=== PATIENT | female | born 2000 | race African-American/Black ===

== ENCOUNTER 2025-03-18 08:58 | Inpatient (IN) | payer OTHER ==
[2025-03-18] MEDS ORDERED: Lidocaine 1% (PF) 30 ML VIAL SC PRN (20:27)
[2025-03-18] MEDS ORDERED: Tranexamic Acid 1,000 MG/10 ML VIAL IVP PRN (20:27)
[2025-03-18] MEDS ORDERED: hydrALAZINE 20 MG/ML VIAL SLOW IVP PRN (20:27)
[2025-03-18] MEDS ORDERED: Acetaminophen 500 MG TAB PO PRN (20:27)
[2025-03-18] MEDS ORDERED: Methylergonovine 0.2 MG/ML VIAL IM PRN (20:27)
[2025-03-18] MEDS ORDERED: Misoprostol 200 MCG TAB PR PRN (20:27)
[2025-03-18] MEDS ORDERED: Promethazine HCl 25 MG/ML VIAL IM PRN (20:27)
[2025-03-18] MEDS ORDERED: Ibuprofen 800 MG TAB PO PRN (20:27)
[2025-03-18] MEDS ORDERED: Oxytocin 30 units/NS 500 ML 500 ML IV SCH ×2 (20:30)
[2025-03-18] MEDS: Lactated Ringer's 1,000 ML IV SCH (21:16)
[2025-03-18 21:19] VITALS: BMI 43.4
[2025-03-18] MEDS: Misoprostol 100 MCG TAB VAG SCH (21:50)
[2025-03-18 22:18] LABS: Hep B Surf Ag - L&D Non-Reactive S/CO (NonReactive)
[2025-03-18 22:21] LABS: Syphilis Antibody Nonreactive (Nonreactive); Syphilis Antibody Index 0.05 S/CO (<1.00 Non-Reactive)
[2025-03-18 22:27] LABS: Hematocrit 32.5 % (34.9-44.5); Mean Corpuscular HGB CONC 33.8 g/dL (32.0-36.0); Mean Corpuscular Hemoglobin 32.6 pg (27.0-33.0); Mean Corpuscular Volume 96.4 fL (81.6-98.3); Mean Platelet Volume 11.1 fL (7.4-10.4); Platelet Count 304 10x3/uL (150-450); RBC Distribution Width 12.5 % (11.5-14.5); Red Blood Cell (RBC) Count 3.37 10x6/uL (3.90-5.03); White Blood Cell (WBC) Count 8.01 10x3/uL (3.5-10.5)
[2025-03-19] MEDS: Ondansetron PF 4 MG/2 ML Vial IVP PRN (11:31)
[2025-03-19 12:06] LABS: #Basophils 0.04 10x3/uL (0.0-0.2); #Eosinophils 0.11 10x3/uL (0.0-0.5); #Monocytes 0.88 10x3/uL (0.0-1.1); #Neutrophils 5.99 10x3/uL (1.5-8.4); %Basophils 0.4 % (0.0-2.0); %Lymphocytes 33.5 % (18.0-47.0); %Monocytes 8.3 % (0.0-10.0); %Neutrophils 56.2 % (40.0-75.0); Hematocrit 36.5 % (34.9-44.5); Hemoglobin 12.2 g/dL (12.0-15.5); Mean Corpuscular HGB CONC 33.4 g/dL (32.0-36.0); Mean Corpuscular Hemoglobin 32.1 pg (27.0-33.0); Mean Corpuscular Volume 96.1 fL (81.6-98.3); Mean Platelet Volume 11.2 fL (7.4-10.4); Platelet Count 321 10x3/uL (150-450); RBC Distribution Width 12.3 % (11.5-14.5); White Blood Cell (WBC) Count 10.64 10x3/uL (3.5-10.5)
[2025-03-19 12:20] LABS: ALT (SGPT) 26 U/L (Less than 34); AST (SGOT) 29 U/L (11-34); Alkaline Phosphatase 113 U/L (40-110); Anion Gap 14 mmol/L (10-20); BUN (Urea Nitrogen) 6 mg/dL (7.0-18.7); Bilirubin, Total 0.5 mg/dL (0.3-1.2); Calc. Creatinine Clearance 241 mL/min (70-130); Calcium 9.6 mg/dL (7.8-10.44); Carbon Dioxide 19 mmol/L (22-29); Chloride 105 mmol/L (98-107); Estimated GFR 126; Globulin 4.8 g/dL (2.4-3.5); Glucose 95 mg/dL (70-105); Potassium 3.5 mmol/L (3.5-5.1); Protein, Total 7.8 g/dL (6.0-8.3); Sodium 134 mmol/L (136-145)
[2025-03-19] MEDS: fentaNYL 50 mcg/mL 1 mL Vial SLOW IVP PRN (12:23)
[2025-03-19 18:48] LABS: Creatinine, Urine 37.64 mg/dL (16.00-327.00); Protein, Urine Random Quant Less than 10 mg/dL (1-14)
[2025-03-20] MEDS ORDERED: hydrALAZINE 20 MG/ML VIAL SLOW IVP PRN ×3 (00:39→08:09)
[2025-03-20] MEDS ORDERED: Labetalol HCl 100 MG/20 ML VIAL SLOW IVP PRN ×2 (00:39)
[2025-03-20] MEDS ORDERED: Moisturizing Cream (Eucerin) 113 GM JAR TOP PRN ×2 (04:13→08:25)
[2025-03-20] MEDS ORDERED: diphenhydrAMINE 50 MG/ML VIAL IVP PRN ×2 (04:13→08:25)
[2025-03-20] MEDS ORDERED: Promethazine HCl 25 MG/ML VIAL IM PRN (04:13)
[2025-03-20] MEDS ORDERED: Lactated Ringer's 500 ML IV PRN (04:13)
[2025-03-20] MEDS ORDERED: Acetaminophen 325 MG TAB PO PRN (04:13)
[2025-03-20] MEDS ORDERED: Naloxone HCl 0.4 mg/ml Vial IVP PRN ×4 (04:13→08:25)
[2025-03-20] MEDS ORDERED: ePHEDrine Sulfate 50 MG/10 ML VIAL SLOW IVP PRN (04:13)
[2025-03-20] MEDS ORDERED: Ondansetron PF 4 MG/2 ML Vial IVP PRN ×3 (04:13→08:25)
[2025-03-20] MEDS ORDERED: Communication Order-Pharmacy FS SCH ×2 (04:15→08:30)
[2025-03-20] MEDS ORDERED: fentaNYL 2 mcg/Ropivacaine 0.2% Epidural 100 ML CADD EPIDURAL SCH (04:15)
[2025-03-20] MEDS ORDERED: Bicitra 30 ML UDCUP PO PRN (06:51)
[2025-03-20] MEDS ORDERED: Famotidine/PF 20 mg/2ml Vial SLOW IVP PRN (06:51)
[2025-03-20] MEDS ORDERED: CEFAZOLIN 2 GM in Sodium Chloride 0.9% 100 ML IVPB SCH (07:00)
[2025-03-20] MEDS ORDERED: Azithromycin 500 MG in Sodium Chloride 0.9% 250 ML 250 ML IVPB SCH (07:00)
[2025-03-20 07:50] LABS: Analyzer IN Cardio CS NICU; Critical Notified By: clumpkins rt; RapidComm Collect By nur.lhl
[2025-03-20 07:53] LABS: Analyzer IN Cardio CS NICU; Critical Notified By: clumpkins rt; RapidComm Collect By nur.lhl; pH (Cord, venous) 7.308 (7.250-7.350)
[2025-03-20] MEDS ORDERED: Methylergonovine 0.2 MG/ML VIAL IM PRN (08:09)
[2025-03-20] MEDS ORDERED: Bisacodyl 10 MG SUPP PR PRN (08:09)
[2025-03-20] MEDS ORDERED: Misoprostol 200 MCG TAB PR PRN (08:09)
[2025-03-20] MEDS ORDERED: diphenhydrAMINE 25 MG CAP PO PRN (08:09)
[2025-03-20] MEDS ORDERED: Lanolin Ointment 7 GM TUBE TOP PRN (08:09)
[2025-03-20] MEDS ORDERED: Oxytocin 30 units/NS 500 ML 500 ML IV SCH (08:15)
[2025-03-20] MEDS ORDERED: Morphine 4 MG/ML VIAL SLOW IVP PRN (08:25)
[2025-03-20] MEDS ORDERED: Meperidine HCl/PF 25 MG (1 mL) VIAL SLOW IVP PRN (08:25)
[2025-03-20] MEDS ORDERED: fentaNYL 50 mcg/mL 1 mL Vial SLOW IVP PRN (08:25)
[2025-03-20] MEDS ORDERED: Naloxone HCl 0.4 mg/ml Vial IV PRN (08:25)
[2025-03-20] MEDS ORDERED: Ketorolac Tromethamine 30 MG (1 mL) VIAL IVP SCH (08:30)
[2025-03-20] MEDS ORDERED: Bupivacaine 0.25% HCL 30 ML VIAL ONE (09:00)
[2025-03-20] MEDS ORDERED: Bupivacaine HCl 0.5%/Epinephrine 1:200,000/PF 30 ml Vial ONE (09:00)
[2025-03-20] MEDS: fentaNYL/Ropivacaine Epidural 100 ML ONE (10:36)
[2025-03-20] MEDS: Morphine PF 10 MG/10 ML VIAL ONE (10:36)
[2025-03-20] MEDS: Azithromycin 500 MG VIAL ONE ×2 (10:36)
[2025-03-20] MEDS: CEFAZOLIN 2 GM VIAL ONE (10:36)
[2025-03-20] MEDS: Lidocaine 2% MPF 10 ML AMP (For Epidural Use) ONE ×2 (10:36)
[2025-03-20] MEDS: KETAMINE 100 MG/ML (5ML VIAL) ONE (10:37)
[2025-03-20] MEDS: Ondansetron PF 4 MG/2 ML Vial ONE (10:37)
[2025-03-20] MEDS: Fentanyl 100 MCG/2 ML VIAL ONE (10:37)
[2025-03-20] MEDS: Ketorolac Tromethamine 30 MG (1 mL) VIAL ONE (10:37)
[2025-03-20] MEDS: Oxytocin 10 UNITS/ML VIAL ONE ×2 (10:37)
[2025-03-20] MEDS: Midazolam HCl 2 mg/2 ml Vial ONE (10:37)
[2025-03-20] MEDS: Tranexamic Acid 1,000 MG/10 ML VIAL ONE (10:37)
[2025-03-20] MEDS: Erythromycin Base 0.5% Oint 1 GM TUBE ONE (10:38)
[2025-03-20] MEDS: Ferrous Sulfate 325 MG TAB PO SCH (10:38)
[2025-03-20] MEDS: Prenatal Vitamin 1 TAB PO SCH (10:38)
[2025-03-20] MEDS: Phytonadione Neonatal 1 MG/0.5 ML AMP ONE (10:38)
[2025-03-20] MEDS: Docusate 100 MG CAP PO SCH (10:38)
[2025-03-20] MEDS: Boostrix 0.5 ML (Tdap) VIAL (>/=7 yrs of age) IM ONE (10:38)
[2025-03-20] MEDS: Simethicone Chewable 80 MG TAB PO PRN (10:58)
[2025-03-20] MEDS: Acetaminophen 325 MG TAB PO PRN (10:58)
[2025-03-20] MEDS: Ondansetron PF 4 MG/2 ML Vial IVP PRN (11:28)
[2025-03-20] MEDS: Ketorolac Tromethamine 30 MG (1 mL) VIAL IVP PRN (13:40)
[2025-03-20] MEDS: Promethazine HCl 25 MG/ML VIAL IM PRN (15:06)
[2025-03-21 05:37] LABS: Hematocrit 27.3 % (34.9-44.5); Hemoglobin 9.2 g/dL (12.0-15.5); Mean Corpuscular HGB CONC 33.7 g/dL (32.0-36.0); Mean Corpuscular Hemoglobin 32.7 pg (27.0-33.0); Mean Corpuscular Volume 97.2 fL (81.6-98.3); Platelet Count 250 10x3/uL (150-450); RBC Distribution Width 12.5 % (11.5-14.5); Red Blood Cell (RBC) Count 2.81 10x6/uL (3.90-5.03); White Blood Cell (WBC) Count 11.41 10x3/uL (3.5-10.5)
[2025-03-21] MEDS: HYDROcodone/Acetaminophen 5/325 mg Tablet PO PRN (07:48)
[2025-03-21] MEDS: Ibuprofen 800 MG TAB PO SCH (13:31)
[2025-03-22] MEDS: HYDROcodone/Acetaminophen 5/325 mg Tablet PO PRN (12:56)
[2025-03-23 07:42] VITALS: BP 121/78; TEMP 98.1
== END 2025-03-23 12:40 | disposition home or self-care (01) | DRG 788 ==
LOC: CSHLD 20:16 → CSHPP 03-20 10:25
PROVIDERS: ADMIT Family Medicine; ATTEND Family Medicine
PROC: 10907ZC Drainage of Amniotic Fluid, Therapeutic from Products of Conception, Via Natural or Artificial Opening (ICD-10-PCS; principal; 2025-03-18)
PROC: 10H07YZ Insertion of Other Device into Products of Conception, Via Natural or Artificial Opening (ICD-10-PCS; 2025-03-18)
PROC: 10D00Z1 Extraction of Products of Conception, Low, Open Approach (ICD-10-PCS; 2025-03-20)
DX: O99.214 Obesity complicating childbirth (principal); Z3A.39 39 weeks gestation of pregnancy; Z37.0 Single live birth; E66.813 Obesity, class 3; O99.02 Anemia complicating childbirth; Z79.82 Long term (current) use of aspirin; O99.52 Diseases of the respiratory system complicating childbirth; J45.909 Unspecified asthma, uncomplicated; O76 Abnormality in fetal heart rate and rhythm complicating labor and delivery; O64.0XX0 Obstructed labor due to incomplete rotation of fetal head, not applicable or unspecified; O13.4 Gestational [pregnancy-induced] hypertension without significant proteinuria, complicating childbirth
CPT/HCPCS: 36415; 51702; 59200; 80053; 82570; 82805; 84156; 85025; 85027; 86780; 86850; 86900; 86901; 87340; J0665; J1885; J2250; J2274; J2405; J2550; J2590; J3010; J7120